=== PATIENT | female | born 1995 | race Caucasian/White ===

== ENCOUNTER 2016-05-27 06:19 | Day surgery (SDC) | payer OTHER ==
[~2016-05-27] VITALS: Ht 160 cm; Wt 88.1 kg
[2016-05-27] VITALS (8 sets, daily range): BP systolic 94–120; BP diastolic 43–69; PULSE 82–112; RESP 16–19; O2SAT 93–98
[~2016-05-27 06:19] MED LIST: CITA20TA11 PO; CeFAZolin 2 Gm/50 mL D5W IV Premix IV ONE; Lactated Ringer's 1,000 ML IV SCH; mirena INTRAUTERI
[2016-05-27] MEDS ORDERED: Ondansetron 2 mg/mL 2 mL Inj ONE (06:20)
[2016-05-27] MEDS ORDERED: Ketamine 10 mg/mL 20 mL Inj ONE (06:20)
[2016-05-27] MEDS ORDERED: Propofol 10,000 mCg/mL 20 mL Inj ONE (06:20)
[2016-05-27] MEDS ORDERED: MetoCLOpramide 5 mg/mL 2 mL Inj ONE (06:20)
[2016-05-27] MEDS ORDERED: Rocuronium 10 mg/mL 5 mL Inj ONE (06:20)
[2016-05-27] MEDS ORDERED: Glycopyrrolate 0.2 mg/mL 5 mL Inj ONE (06:20)
[2016-05-27] MEDS ORDERED: fentaNYL-PF 50 mCg/mL 2 mL Inj ONE (06:20)
[2016-05-27] MEDS ORDERED: Neostigmine 1 mg/mL 5 mL Inj ONE (06:20)
[2016-05-27] MEDS ORDERED: Dexamethasone 4 mg/mL Inj ONE (06:20)
--- NOTE | 2016-05-27 08:14 | PCM.HPANE ---
Patient Data Surgeon Admitting Provider: Attending Provider:Tiago Wesley MD Primary Care Physician:Jojo Pace MD Other Provider:Nneka Gardneringham Anesthesia Reason for Visit Right Shoulder Instability Ht/WT & BMI Height (Feet): 5 Height (Inches): 3.00 Weight (Kilograms): 88.080 Body Mass Index 34.00 Allergies Coded Allergies: amoxicillin (Verified Allergy, Intermediate, gi upset, 05/22/16) sulfamethoxazole (Verified Allergy, Intermediate, 09/25/15) trimethoprim (Verified Allergy, Intermediate, 09/25/15) tramadol (Verified Allergy, Unknown, dizziness, 05/22/16) Past Anesthesia History Anesthesia History: Denies:: Anesthesia Reactions (no prior surgery), Fam Anesthesia Reaction Diabetes History Hx Diabetes?: No MRSA MRSA: No Medications Home Meds Incl Beta Donta: No Reported Medications Citalopram 20 Mg [id number] Mg PO DAILY Ref 0 05/22/16 [mirena] 20mcg/24hrs No Conflict Check20 Mcg INTRAUTERI DAILY 05/22/16 Discontinued Scripts Ondansetron ODT 8 Mg Tab.rapdis8 Mg PO QID #10 TABLET Prov:Tiago Egan MD 09/25/15 Tramadol 50 Mg [id number] Mg PO Q6H PRN For Pain #16 TABLET Prov:Tiago Egan MD 09/25/15 History History of ENT Problems?: Yes HEENT History: Positive for:: TMJ Hx of Heart Problems?: No Cardiovascular History: Denies:: AICD Congestive Heart Failure Heart Murmur Hypertension Irregular Heartbeat Pacemaker Hx of Respiratory Problem?: Yes Respiratory History: Positive for:: Pneumonia (walking pneumonia 1 year ago) Denies:: Asthma COPD Emphysema Oxygen Administration Tuberculosis Use of C-PAP Machine Hx Neurologic Problems?: Yes Neurological History: Positive for:: Headaches (hx of migraines- rarely) Denies:: CVA Multiple Sclerosis Parkinson's Disease Seizures Hx of GI Problems?: No Gastrointestinal History: Denies:: Diverticulitis Gall Bladder Disease Gastroesphageal Reflux Gastrointestinal Bleeding Heartburn Hepatitis Hiatal Hernia Liver Disease Rectal Bleeding Hx of Problems?: No Genitourinary History: Denies:: Kidney Stones Urinary Tract Infection Female Hx: Denies:: Currently Problems with Breasts? (small cystic masses with period ) Skin History: Denies:: History Skin Disorders? (acne) Pressure Ulcers Hx Musculoskeletal Problems?: Yes Musculoskeletal History: Positive for:: Back Injury (hx of thoracic scoliosis) Musculoskeletal Trauma (right shoulder current admission problem) Denies:: Fibromyalgia Joint Replacement Myasthenia Gravis Osteoarthritis Rheumatoid Arthritis Hx of Psycho/Social Problems?: Yes Psycho Social History: Positive for:: Anxiety Hx Depression Hx Surgeries?: No Hx Any Other Health Problems?: Yes Other History: Denies:: Cancer Thyroid Disease History Blood Transfusions: Positive for:: Accept Blood Products? Denies:: Blood Transfusions Hx Diabetes: No Hx Alcohol Use: NoHx Substance Use: Yes Smoking Status: Unknown if Ever Smoker Have You Smoked inLast 12 mo: Yes Stop/Bang Treated for Sleep Apnea?: No Do You Have a CPAP Machine?: No S-Snoring: Do You Snore Loudly: No T-Tired: feel tired, fatigued: No O-Obsered: Observed not breath: No P-Blood Pressure: treated: No B- Body Mass Index > 35 kg/m2: No A- Age over 50: No N- Neck Large Circumference: No G- Gender Male: No SHEEBA Total Score: 0 SHEEBA Risk Assessment: Low Risk, <3 Yes Risk Assessment Category Category 1A: Patient has history of documented sleep apnea, and HAS NOT received any narcotic, sedative or anesthesia administration during this stay. Category 1B: Patient has history of documented sleep apnea, and HAS received any narcotic , sedative or anesthesia administration during this stay Category 2: Patient has SUSPECTED Obstructive Sleep Apnea, and HAS received any narcotic , sedative or anesthesia administration during this stay. Category 3: Patient has SUSPECTED Obstructive Sleep Apnea and HAS NOT received narcotic, sedative or anesthesia administration during this stay. Category 4: Outpatient in Procedural Areas with known sleep apnea or who screen positive for High Risk via the STOP/BANG questionnaire. Exam Exam Vital Signs Vital Signs Date Time Temp Pulse Resp B/P Pulse Ox O2 Delivery O2 Flow Rate FiO2 05/27/16 06:42 36.8 82 17 115/64 98 Room Air General Appearance: Oriented X3 HEENT/AIRWAY: MP 2 Lungs: Normal Air Movement Heart: Regular Rate/Rhythm Plan Impression Patient chart reviewed, patient interviewed and anesthestic plan with risks, benefits, and alternatives discussed, and informed consent obtained. NPO Status: 05/26@2000, water @ 0400 ASA Physical Status: ASA2 Mod Systemic Disease Anesthetic Plan: GA, Regional Block Bene/Risks/Altern/Consents: Yes HP Complete Prior to Induction: Yes Edilson Garcia MD May 27, 2016 08:14
[2016-05-27] MEDS ORDERED: Lactated Ringer's 1,000 ML IV ONE (08:29)
[2016-05-27] MEDS ORDERED: Lactated Ringer's 1,000 ML IV SCH (09:15)
[2016-05-27] MEDS ORDERED: Ondansetron 2 mg/mL 2 mL Inj IVPUSH PRN (09:15)
[2016-05-27] MEDS ORDERED: fentaNYL-PF 50 mCg/mL 2 mL Inj IVPUSH PRN (09:15)
[2016-05-27] MEDS ORDERED: Dexamethasone 4 mg/mL Inj IVPUSH PRN (09:15)
[2016-05-27] MEDS ORDERED: EPHEDrine Sulfate 50 mg/mL Inj IVPUSH PRN (09:15)
[2016-05-27] MEDS ORDERED: Phenylephrine 10,000 mCg/mL Inj IVPUSH PRN (09:15)
[2016-05-27] MEDS ORDERED: HYDROmorphone 1 mg/mL Inj IVPUSH PRN (09:15)
[2016-05-27] MEDS ORDERED: Lactated Ringer's 500 ML IV PRN (09:15)
[2016-05-27] MEDS ORDERED: MetoCLOpramide 5 mg/mL 2 mL Inj IVPUSH PRN (09:15)
[2016-05-27] MEDS ORDERED: Ropivacaine-PF 0.5% 30 mL Inj INFILTRATE ONE (09:49)
[2016-05-27] MEDS ORDERED: Ketorolac 15 mg/mL Inj IVPUSH ONE (09:55)
[2016-05-27] MEDS ORDERED: HYDROcodone-APAP 5-325 mg Tablet PO PRN (09:55)
--- NOTE | 2016-05-27 10:01 | PCM.ORTHOP ---
Orthopedic Operative Report Date of Service: May 27, 2016 Pre Operative Diagnosis Right shoulder instability Post Operative Diagnosis Same Procedure Right shoulder arthroscopy, posterior labral repair Surgeon Surgeon: Tiago Wesley MD Assistants: Quentin Hou Indication for Procedure Right shoulder instability Findings Tear right shoulder instability with posterior labral tear Details of Procedure EMERGENCY COMMUNICATIONS DISPATCHER SURGEON: During the operation, the services of physician shipping assistant were medically indicated and necessary to provide exposure of the operative site for the surgical procedure and to maintain the limb in a proper position to carry out the operation safely and efficiently. Without the qualified licensed occupational therapy assistant being present, it would have extended the operative procedure and made the procedure technically more difficult to perform. 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 X-rays show the glenohumeral joint to be well maintained. The risks, benefits, and alternatives of surgery were discussed with the patient. The risks included but were not limited to infection, bleeding, damage to vessels and nerves, loss of motion, continued pain, complications due to anesthesia including myocardial infarction , stroke, , etc. The patient stated understanding of the nature of the surgical procedure and gave written and verbal consent to proceed. PROCEDURE: The patient was brought into the operating room and placed supine on the operating room table. A interscalene block was placed in the right shoulder for postoperative pain management, followed by the administration of general anesthesia. 2 gram of Ancef was given The patient was then placed into the lateral decubitus position with the right side up. An axillary role was placed and the legs were padded as necessary to avoid pressure points. The patient was maintained in position with a beanbag evacuation device. A thorough examination of the right shoulder under anesthesia was performed. The patient had 150 degrees of forward elevation and 1:30 degrees of abduction. In 90 degrees of abduction She had 90 degrees of external rotation and 90 degrees of internal rotation. The right shoulder was then examined for stability. In neutral rotation she had 4/5 posterior instability. The right upper extremity was then prepped and draped in the usual fashion. The arm was suspended with a well-padded sleeve with eight pounds of balanced suspension in the arthroscopic position. A standard posterior portal was made inferior and medial to the posterior corner of the acromion. The incision was made only through skin. The trocar was advanced through the soft tissue with a blunt- tipped obturator. This was inserted into the glenohumeral joint without difficulty. The 4 mm arthroscope was placed through the cannula and attached to the video monitor system. Inflow was achieved using the Arthrex arthroscopic pump. The pressure was maintained at 30-35 mm of mercury throughout the entire procedure. Once the arthroscope confirmed visualization within the shoulder joint, it was advanced anteriorly into the rotator interval beneath the biceps tendon. A Wissinger monica was then used to create the anterior portal from inside-out. A second anterior stab wound incision was made only through skin and an anterior cannula was placed. A routine arthroscopic survey was begun Survey: A posterior labral tear was noted with loosening of the posterior capsule Complex surgical procedure: This was an extremely complex surgical procedure which took approximately 30-40% longer to complete than a standard repair. Without the use of a qualified res habilitation assistant, this surgical procedure would have taken even considerably longer and been unable to be performed arthroscopically Posterior labral repair: Attention was then directed toward posterior labral repair. An arthroscopic mid glenoid portal was established anteriorly just above the subscapularis with outside in localization. Attention was then directed posteriorly. Using a liberator elevator, the posterior labrum was elevated. A motorized shaver was then used to gently debride the labral edge, as well as to lightly abrade the exposed glenoid neck and bony surface. Once completed, a suturetak anchor was placed at the inferior-most margin of the exposed bony defect at approximately the 5:00 position. The anchor was deployed with excellent fixation purchase. The two stitches from the inferior- most anchor were then passed across the posterior inferior labral tear beginning the first pass at approximately the 5:30 position then advancing the labrum superiorly and laterally. A full thickness labral pass was taken filling the defect that was present. The humeral head was sitting back centralized on the glenoid surface. There was excellent loop and knot security. A second anchor was then placed more proximally again with another anchor which had excellent fixation purchase. The two stitches for this were then passed as well advancing from inferior to superior and placing full thickness labral bites, as well as capsular plication stitches reducing the capsular volume and advancing the labrum back to the edge of the bone. The labrum appeared to be well secured back to bone with excellent fixation. There was an excellent restored posterior buttress. The head was well centralized. Closure: The arm was then taken out of traction. The instability both in neutral rotation and in abduction external rotation was eliminated. The humeral head was well centralized. The arthroscope was then used to visualize the repair both from the anterior superior viewing portal and the posterior viewing portal which showed the humeral head to be well balanced with excellent and appropriate tissue tension. The glenohumeral joint was then copiously irrigated with an additional liter of lactated Ringers solution and excess fluid was drained. The arthroscopic portals were closed with #4-0 Nylon and Steri-Strips. A dry sterile dressing was applied, followed by a neutral rotation sling. The patient was awakened in the Operating Room and transported to the Recovery Room in satisfactory condition. He appeared to tolerate the procedure well. There were no complications noted. Grafts, Implants: Implants-See Implant Record Complications There were no periprocedural complications identified. Condition Stable Anesthetic Administered: GA Catheters: None Output, Estimated Blood Loss: 10 Blood Admin during surgery: No Surgical Cast or Splint: Shoulder Immobilizer Surgical Specimen Removed: No Specimen sent to Pathology: No copies to: Tiago Wesley MD, Christopher L MD May 27, 2016 10:01
--- NOTE | 2016-05-27 11:21 | PCM.ANEP2 ---
Post Anesthesia Evaluation ASA/CMS Post Anesthesia VS in Patient's Normal Range?: Yes Resp Stable; Airway Patent?: Yes CV Function & Hydration Stable: Yes Mental Status Recovered?: Yes Pain control Satisfactory?: Yes N/V Control Satisfactory?: Yes Edilson Garcia MD May 27, 2016 11:21
--- NOTE | 2016-05-27 11:21 | PCM.ANEP1 ---
Post Anesthesia Phase 1 PACU Phase 1 Assessment Date of Service: May 27, 2016 Vital Signs Vital Signs Date Time Temp Pulse Resp B/P Pulse Ox O2 Delivery O2 Flow Rate FiO2 05/27/16 10:51 97 16 120/68 94 Room Air 05/27/16 10:40 112 17 116/63 94 Room Air 05/27/16 10:35 36.6 112 19 117/69 93 Room Air 05/27/16 10:20 92 17 97/44 95 Simple Mask 10 05/27/16 10:15 93 17 94/43 95 Simple Mask 10 05/27/16 10:10 104 18 116/53 95 Simple Mask 10 05/27/16 10:07 36.6 104 18 119/56 93 Simple Mask 10 05/27/16 06:42 36.8 82 17 115/64 98 Room Air Anesthetic Administered: GA Level of Alertness: Awake, talking Airway Device: Oralpharangeal Airway Lungs: Normal Air Movement Edilson Garcia MD May 27, 2016 11:21
== END 2016-05-27 23:59 | disposition home or self-care (01) ==
LOC: SAS 06:19
PROVIDERS: ATTEND Orthopaedic Surgery
DX: M25.311 Other instability, right shoulder (principal); S43.004A Unspecified dislocation of right shoulder joint, initial encounter; Y93.83 Activity, rough housing and horseplay; Y92.9 Unspecified place or not applicable; E55.9 Vitamin D deficiency, unspecified; F41.8 Other specified anxiety disorders; E66.9 Obesity, unspecified
CPT/HCPCS: 29807; 76942; C1713; J0171; J1100; J2250; J2405; J2710; J2765; J2795; J7120

== ENCOUNTER 2016-12-18 07:25 | Day surgery (SDC) | payer OTHER ==
[~2016-12-18] VITALS: Ht 160 cm; Wt 88.5 kg
[~2016-12-18 07:25] MED LIST changes: -CITA20TA11 PO; -CeFAZolin 2 Gm/50 mL D5W IV Premix IV ONE; -Lactated Ringer's 1,000 ML IV SCH
[2016-12-18] MEDS ORDERED: Ketamine 10 mg/mL 20 mL Inj ONE (07:26)
[2016-12-18] MEDS ORDERED: Dexamethasone 4 mg/mL Inj ONE (07:26)
[2016-12-18] MEDS ORDERED: fentaNYL-PF 50 mCg/mL 2 mL Inj ONE (07:26)
[2016-12-18] MEDS ORDERED: Propofol 10,000 mCg/mL 20 mL Inj ONE (07:26)
[2016-12-18] MEDS ORDERED: Ondansetron 2 mg/mL 2 mL Inj ONE (07:26)
[2016-12-18 07:46] VITALS: BP 119/71; PULSE 87; RESP 12; O2SAT 97
[2016-12-18] MEDS: Lactated Ringer's 1,000 ML IV SCH ×2 (07:54→09:31)
[2016-12-18] MEDS ORDERED: IBUP-1827 PO (07:57)
[2016-12-18] MEDS ORDERED: CYCL10TA9 PO (07:58)
[2016-12-18] MEDS ORDERED: Levonorgestrel 20 mcg/24 hr IUD INTRAUTERI ONE (08:38)
--- NOTE | 2016-12-18 08:40 | PCM.HPANE ---
Patient Data Date of Service: Dec 18, 2016 Surgeon Admitting Provider: Attending Provider:Sol Keith MD Primary Care Physician:Jojo Pace MD Other Provider:Daniele Gardner Anesthesia Reason for Visit Migrated Iud Ht/WT & BMI Height (Feet): 5 Height (Inches): 3 Weight (Kilograms): 88.5 Body Mass Index 34.00 Allergies Coded Allergies: amoxicillin (Verified Allergy, Intermediate, gi upset, 12/16/16) sulfamethoxazole (Verified Allergy, Intermediate, 12/16/16) trimethoprim (Verified Allergy, Intermediate, 12/16/16) tramadol (Verified Allergy, Unknown, dizziness, 12/16/16) Past Anesthesia History Anesthesia History: Denies:: Abnormal Airway, Anesthesia Reactions, Difficult Intubation, Fam Anesthesia Reaction, Fam Malignant Hypertherm, Malignant Hyperthermia Diabetes History Hx Diabetes?: No MRSA MRSA: No Medications Hypertension Medication: No Home Meds Incl Beta Donta: No Reported Medications Cyclobenzaprine 10 Mg [id number] Mg PO PRN #30 12/18/16 Ibuprofen 600 Mg [id number] Mg PO QID PRN For Pain Ref 0 12/18/16 [mirena] 20mcg/24hrs No Conflict Check20 Mcg INTRAUTERI Q3 YRS 05/22/16 Discontinued Reported Medications Citalopram 20 Mg [id number] Mg PO DAILY Ref 0 05/22/16 History History of ENT Problems?: Yes HEENT History: Denies:: Abnormal Airway Cataracts Difficult Intubation Dysphagia Glaucoma Hearing Problem Sinus Problem TMJ Denture Type: None Teeth Condition: Within Normal Limits Hx of Heart Problems?: No Cardiovascular History: Denies:: AICD Abdominal Aortic Aneurism Atrial Fibrillation Cardiac Surgery Chest Pain Congestive Heart Failure Coronary Artery Disease Heart Murmur Hypertension Irregular Heartbeat Pacemaker Peripheral Vascular Rheumatic Fever Thrombophlebitis Valvular Heart Disease Hx of Respiratory Problem?: Yes Respiratory History: Positive for:: Pneumonia (walking pneumonia 2014) Denies:: Asthma COPD Chest Surgery Cough Dyspnea Emphysema Hemoptysis Oxygen Administration Pulmonary Embolism Tuberculosis Use of C-PAP Machine Use of Inhalers / NEBS Hx Neurologic Problems?: Yes Neurological History: Positive for:: Headaches Denies:: Alzheimer's Disease CVA Multiple Sclerosis Parkinson's Disease Seizures TIA Hx of GI Problems?: No Hx of Problems?: No Genitourinary History: Denies:: HX of Hemodialysis Kidney Stones Urinary Tract Infection HX of Peritoneal Dialysis: No Female Hx: Denies:: Currently Problems with Breasts? (small cystic masses with period ) Skin History: Denies:: History Skin Disorders? (acne) Pressure Ulcers Hx Musculoskeletal Problems?: Yes Musculoskeletal History: Positive for:: Back Injury (hx of thoracic scoliosis) Musculoskeletal Trauma (Rt Shoulder repair) Denies:: Degenerative Joint Fibromyalgia Joint Replacement Myasthenia Gravis Osteoarthritis Rheumatoid Arthritis Systemic Lupus Hx of Psycho/Social Problems?: Yes Psycho Social History: Positive for:: Anxiety Hx Depression Hx Surgeries?: Yes (Rt shoulder) Hx Any Other Health Problems?: Yes Other History: Denies:: Cancer Endocrine Disease Hospitalization Thyroid Disease History Blood Transfusions: Positive for:: Accept Blood Products? Denies:: Blood Transfusions Hx Diabetes: No Hx Alcohol Use: NoHx Substance Use: No Smoking Status: Unknown if Ever Smoker Have You Smoked inLast 12 mo: Yes Stop/Bang S-Snoring: Do You Snore Loudly: No T-Tired: feel tired, fatigued: Yes O-Obsered: Observed not breath: No P-Blood Pressure: treated: No B- Body Mass Index > 35 kg/m2: Yes A- Age over 50: No N- Neck Large Circumference: No G- Gender Male: No SHEEBA Total Score: 2 SHEEBA Risk Assessment: Low Risk, <3 Yes Risk Assessment Category Category 1A: Patient has history of documented sleep apnea, and HAS NOT received any narcotic, sedative or anesthesia administration during this stay. Category 1B: Patient has history of documented sleep apnea, and HAS received any narcotic , sedative or anesthesia administration during this stay Category 2: Patient has SUSPECTED Obstructive Sleep Apnea, and HAS received any narcotic , sedative or anesthesia administration during this stay. Category 3: Patient has SUSPECTED Obstructive Sleep Apnea and HAS NOT received narcotic, sedative or anesthesia administration during this stay. Category 4: Outpatient in Procedural Areas with known sleep apnea or who screen positive for High Risk via the STOP/BANG questionnaire. Exam Exam Vital Signs Vital Signs Date Time Temp Pulse Resp B/P Pulse Ox O2 Delivery O2 Flow Rate FiO2 12/18/16 07:46 36.3 87 12 119/71 97 Room Air General Appearance: Alert, Oriented X3, Cooperative, No Acute Distress HEENT/AIRWAY: MP 2 Lungs: Clear to Auscultation, Normal Air Movement Heart: Exam Unremarkable, Regular Rate/Rhythm, No Murmurs/Rubs/Gallops Meds/Labs/Diagnostics Admission Meds Current Medications Lactated Ringer's (Lr) 1,000 ml @ 120 mls/hr Q8H20M IV Last administered on t 07:54; Start 12/18/16 at 05:00; Stop 12/18/16 at 13:19 Plan Impression Patient chart reviewed, patient interviewed and anesthestic plan with risks, benefits, and alternatives discussed, and informed consent obtained. NPO per Anesth. Guidelines: Yes ASA Physical Status: ASA2 Mod Systemic Disease Anesthetic Plan: GA Bene/Risks/Altern/Consents: Yes HP Complete Prior to Induction: Yes Other Tobacco abuse Hx; Denies GERD Matthias Reza DO Dec 18, 2016 08:40
[2016-12-18 09:31] VITALS: BP 120/80; PULSE 96; RESP 18; O2SAT 99
[2016-12-18] MEDS ORDERED: Silver Nitrate Stick TOPICAL ONE (09:33)
[2016-12-18 09:35] VITALS: BP 117/65; PULSE 94; RESP 16; O2SAT 97
[2016-12-18] MEDS ORDERED: diphenhydrAMINE 25 mg Capsule PO PRN (09:35)
[2016-12-18] MEDS ORDERED: MetoCLOpramide 5 mg/mL 2 mL Inj IVPUSH PRN (09:35)
[2016-12-18] MEDS ORDERED: oxyCODONE-Acetamin 5-325 mg Tablet PO PRN (09:35)
[2016-12-18] MEDS ORDERED: Ondansetron 2 mg/mL 2 mL Inj IVPUSH PRN (09:35)
--- NOTE | 2016-12-18 09:36 | PCM.DIGYN ---
Surgical Discharge Instruction Dates of Hospitalization Date of Hospital Admission Providers Admitting Physician: Primary Care Physician: Jojo Pace MD Attending Physician: Sol Keith MD Diet Discharge Diet: No restrictions Activity Discharge Activity-General: Try not to overdue, Be up and about, No driving while taking narcotic, Other (Pelvic rest for 2 weeks ) Dressing and Incisional Care Hygiene: May shower Follow Up Plan Follow-up appointment: Weeks (2) Call your provider for: Fever, Chills, Shortness of breath, Heavy vaginal bleeding, Increasing pain Sol Keith MD Dec 18, 2016 09:36
[2016-12-18] MEDS ORDERED: IBUP800T28 PO (09:37)
[2016-12-18 09:40] VITALS: BP 120/67; PULSE 92; RESP 14; O2SAT 96
--- NOTE | 2016-12-18 09:43 | PCM.SURGOP ---
Surgical Operative Report Date of Service: Dec 18, 2016 Pre Operative Diagnosis Malpositioned IUD, patient intolerance to office removal Post Operative Diagnosis Same Procedure: Uterine dilation, IUD Removal and mirena IUD replacement Surgeon and Fashion Editor: Surgeon: Sol Keith MD Assistants: None Indication for Procedure 21 yo female with malpositioned IUD noted on abdominal imaging with chronic ongoing pain. Mirena helpful for controlling menses and requesting a new one. Failed an in office attempt at IUD Removal and replacement due to intolerance. Findings: 8 cm sized uterus, malpositioned IUD Procedure Details Patient was placed in dorsal lithotomy position she was prepped and draped Cervix was grasped with tenaculum and cervix was dilated to size 7 hegar dilator Forceps was placed into uterine cavity and malpositioned IUD was removed after multiple attempts New Mirena IUD was inserted without difficulty. The tenaculum was removed and silver nitrate was used to achieve hemostasis Complications There were no periprocedural complications identified. Surgical Specimen Removed: Yes (IUD ) Specimen sent to Pathology: No Surgical Specimen description: Intrauterine device Anesthetic Plan: GA, MAC Grafts, Implants: Implants-See Implant Record Output, Estimated Blood Loss: 0 Blood Administration during mora: No Catheters: None Post Operative Plan Home Sol Keith MD Dec 18, 2016 09:43
[2016-12-18 09:48] VITALS: BP 114/68; PULSE 89; RESP 14; O2SAT 97
[2016-12-18 10:23] VITALS: BP 111/65; PULSE 87; RESP 16; O2SAT 95
--- NOTE | 2016-12-18 11:21 | PCM.ANEP1 ---
Post Anesthesia PACU Phase 1 Assessment Date of Service: Dec 18, 2016 Vital Signs Vital Signs Date Time Temp Pulse Resp B/P Pulse Ox O2 Delivery O2 Flow Rate FiO2 12/18/16 10:23 87 16 111/65 95 Room Air 12/18/16 09:48 89 14 114/68 97 Room Air 12/18/16 09:40 92 14 120/67 96 Room Air 12/18/16 09:35 94 16 117/65 97 Room Air 12/18/16 09:31 36.5 96 18 120/80 99 Simple Mask 10 12/18/16 07:46 36.3 87 12 119/71 97 Room Air Anesthetic Administered: MAC Level of Alertness: Sleepy, easy to arouse FERNANDES's with Equal Strength: Yes Pain: No Nausea or Vomiting: No CV Function & Hydration Stable: Yes Airway Device: Oxygen Delivery: Simple Mask Lungs: Clear to Auscultation, Normal Air Movement Dermatome Level: Full Sensation PACU Phase 2 Assessment Complications: No Patient Instructions Provided: N/A Matthias Wolfe DO Dec 18, 2016 11:21
== END 2016-12-18 23:59 | disposition home or self-care (01) ==
LOC: SAS 07:25
PROVIDERS: ATTEND Obstetrics & Gynecology
DX: T83.89XA Other specified complication of genitourinary prosthetic devices, implants and grafts, initial encounter (principal); F41.8 Other specified anxiety disorders; F17.210 Nicotine dependence, cigarettes, uncomplicated; Z30.433 Encounter for removal and reinsertion of intrauterine contraceptive device
CPT/HCPCS: 58300; 58301; J1100; J2250; J2405; J3010; J7120; J7297; J7298